=== PATIENT | female | born 1950 | race African-American/Black ===

== ENCOUNTER 2016-11-14 08:42 | Inpatient (IN) | payer OTHER ==
[~2016-11-14] VITALS: Ht 165.1 cm; Wt 78.9 kg
[2016-11-14 09:30] LABS: CLARITY URINE CLEAR (CLEAR); COLOR URINE DARK YELLOW (YELLOW); GLUCOSE URINE NEGATIVE (NEGATIVE); KETONES URINE TRACE (NEGATIVE); LEUKOCYTE ESTERASE URINE NEGATIVE (NEGATIVE); NITRITE URINE NEGATIVE (NEGATIVE); OCCULT BLOOD URINE TRACE (NEGATIVE); PH URINE 5.5 (4.5-8.0); PROTEIN URINE 3+ (NEGATIVE); SPECIFIC GRAVITY URINE 1.027 (1.005-1.030)
[2016-11-14 09:45] LABS: *AMPHETAMINES SCREEN URINE NEGATIVE (NEGATIVE); *BARBITURATES SCREEN URINE NEGATIVE (NEGATIVE); *BENZODIAZEPINES SCREEN URINE NEGATIVE (NEGATIVE); *COCAINE SCREEN URINE NEGATIVE (NEGATIVE); CANNABINOID URINE SCREEN NEGATIVE (NEGATIVE); METHADONE URINE SCREEN NEGATIVE (NEGATIVE); OPIATES URINE SCREEN NEGATIVE (NEGATIVE); PHENCYCLIDINE URINE SCREEN NEGATIVE (NEGATIVE)
[2016-11-14 09:55] LABS: BASOPHILS % 0.9 % (0.0-2.0); HEMATOCRIT. 48.2 % (36.0-48.0); HEMOGLOBIN. 15.2 g/dL (12.0-16.0); LYMPHOCYTES % 21.2 % (20.0-50.0); MEAN CORPUSCULAR HEMOGLOBIN 25.7 pg (28.0-32.0); MEAN CORPUSCULAR VOLUME 81.3 fL (81.0-99.0); MEAN PLATELET VOLUME 11.2 fl (7.4-10.4); MONOCYTES % 6.1 % (2.0-8.0); NEUTROPHILS % 70.8 % (40.0-76.0); PLATELET 195 x1000/uL (130-400); RED BLOOD CELL COUNT 5.93 mill/uL (4.2-5.4); RED CELL DISTRIBUTION WIDTH 14.3 % (11.6-14.6)
[2016-11-14 10:09] LABS: AMMONIA 31 uMol/L (<32)
[2016-11-14 10:13] LABS: CARBON DIOXIDE 24 mEq/L (21-32); CHLORIDE 105 mEq/L (98-107); ETHANOL BLOOD < 10 mg/dL; TROPONIN I < 0.02 ng/mL (0.00-0.04)
[2016-11-14] MEDS ORDERED: PIPERACILLIN/TAZOBACTAM 3.375GM/50ML PREMIX IV ONE (11:30)
[2016-11-14] MEDS ORDERED: PIPERACILLIN/TAZ 3.375G PREMIX 50 ML IV NR (11:30)
[2016-11-14] MEDS ORDERED: SODIUM CHLORIDE 0.9% 1,000 ML IV ONE (12:15)
[2016-11-14] MEDS ORDERED: ACETAMINOPHEN 325MG TABLET PO PRN (12:45)
[2016-11-14] MEDS ORDERED: NA PHOS,M-B/NA PHOS,DI-BA ENEMA 118ML PR PRN (12:45)
[2016-11-14] MEDS ORDERED: GUAIFENESIN 200MG/10ML SUGAR FREE UDC PO PRN (12:45)
[2016-11-14] MEDS ORDERED: DOCUSATE SODIUM 100MG CAPSULE PO PRN (12:45)
[2016-11-14] MEDS ORDERED: IPRATROPIUM/ALBUTEROL 0.5-3(2.5)MG/3ML NEB INH PRN (12:45)
[2016-11-14] MEDS ORDERED: ZOLPIDEM TARTRATE 5MG TABLET PO PRN (12:45)
[2016-11-14] MEDS ORDERED: ONDANSETRON HCL 4MG/2ML VIAL IV PRN (12:45)
[2016-11-14] MEDS ORDERED: KETOROLAC 15MG/ML VIAL IV PRN (12:45)
[2016-11-14] MEDS ORDERED: TRAMADOL 50MG TABLET PO PRN (12:45)
[2016-11-14] MEDS ORDERED: MAGNESIUM/ALUMINUM HYDROXIDE/SIMETHICONE 30ML UDC PO PRN (12:45)
[2016-11-14] MEDS ORDERED: LEVOFLOXACIN 500MG PREMIX 100 ML IV NR (13:00)
[2016-11-14] MEDS ORDERED: ENOXAPARIN 40MG/0.4ML SYR SUBCUT SCH (13:00)
[2016-11-14 13:03] LABS: T4 FREE 1.23 ng/dL (0.76-1.46)
[2016-11-14 13:25] LABS: FOLIC ACID (FOLATE) SERUM 7.2 ng/mL (>5.38)
[2016-11-14 14:37] LABS: CREATINE KINASE 88 IU/L (26-192); CREATINE KINASE MB FRACTION < 0.5 ng/mL (0.5-3.6); TROPONIN I < 0.02 ng/mL (0.00-0.04)
[2016-11-14 20:00] VITALS: BP 159/80
[2016-11-14 21:00] VITALS: BP 157/63
[2016-11-14] MEDS: SUCRALFATE 1 G/10 ML UDC PO SCH (21:00)
[2016-11-14] MEDS: ENOXAPARIN 40MG/0.4ML SYR SUBCUT SCH (21:13)
[2016-11-14] MEDS: FAMOTIDINE 20MG/2ML VIAL IV SCH (21:13)
[2016-11-14 23:11] LABS: CREATINE KINASE 105 IU/L (26-192); CREATINE KINASE MB FRACTION 0.7 ng/mL (0.5-3.6); TROPONIN I < 0.02 ng/mL (0.00-0.04)
[2016-11-15] VITALS: BP 137/62
[2016-11-15 04:00] VITALS: BP 128/71
[2016-11-15] MEDS: SUCRALFATE 1 G/10 ML UDC PO SCH ×4 (06:53→20:28)
[2016-11-15 08:00] VITALS: BP 143/93
[2016-11-15] MEDS: FAMOTIDINE 20MG/2ML VIAL IV SCH ×2 (08:46→20:28)
[2016-11-15] MEDS: ASPIRIN 325MG EC TABLET PO SCH (08:47)
[2016-11-15] MEDS: CLONIDINE 0.1MG TABLET PO PRN ×2 (08:47→16:23)
[2016-11-15] MEDS ORDERED: CEFTRIAXONE 1 G PREMIX 50 ML IV SCH (09:00)
[2016-11-15 12:00] VITALS: BP 162/81
[2016-11-15] MEDS ORDERED: LEVOFLOXACIN 500MG PREMIX 100 ML IV SCH (12:00)
[2016-11-15 16:00] VITALS: BP 165/105
[2016-11-15 20:00] VITALS: BP 151/72
[2016-11-15] MEDS: ENOXAPARIN 40MG/0.4ML SYR SUBCUT SCH (20:29)
[2016-11-16] VITALS: BP 160/88
[2016-11-16 04:00] VITALS: BP 156/97
[2016-11-16] MEDS: SUCRALFATE 1 G/10 ML UDC PO SCH (06:19)
[2016-11-16 07:59] VITALS: BP 199/87
[2016-11-16 08:04] VITALS: BP 173/98
[2016-11-16] MEDS: FAMOTIDINE 20MG/2ML VIAL IV SCH (09:00)
[2016-11-16] MEDS: ASPIRIN 325MG EC TABLET PO SCH (09:00)
[2016-11-16] MEDS: CLONIDINE 0.1MG TABLET PO PRN (10:07)
[2016-11-16] MEDS ORDERED: CEFTRIAXONE 1 G PREMIX 50 ML IV SCH (11:00)
[2016-11-16 12:05] VITALS: BP 132/87
== END 2016-11-16 12:38 | disposition home or self-care (01) | DRG 871 ==
LOC: ER 08:51 → EDBD 12:02 → 8WST 12:02 → SUPCPDRO 12:38 → ENRESERV 17:33 → CANRESERV 17:49
PROVIDERS: ADMIT Internal Medicine; ATTEND Internal Medicine
DX: A41.9 Sepsis, unspecified organism (principal); G92 Toxic encephalopathy; N39.0 Urinary tract infection, site not specified; E78.00 Pure hypercholesterolemia, unspecified; I10 Essential (primary) hypertension; K59.00 Constipation, unspecified; G47.00 Insomnia, unspecified; Z86.73 Personal history of transient ischemic attack (TIA), and cerebral infarction without residual deficits
CPT/HCPCS: 36415; 70450; 70551; 71010; 80053; 80061; 80305; 80307; 80329; 81001; 82140; 82550; 82553; 82607; 82746; 83036; 83540; 83550; 83605; 83880; 84439; 84443; 84484; 85025; 93306; 93970; 96365; 96366; 96368; 96375; 99285; G0482; J0696; J1650; J1956; J2405; J2543; J3490; J7030; J7040

== ENCOUNTER 2018-04-30 09:25 | Emergency (ER) | payer OTHER ==
[~2018-04-30] VITALS: Ht 154.9 cm; Wt 69.0 kg
[2018-04-30 11:06] LABS: BASOPHILS % 1.1 % (0.0-2.0); EOSINOPHILS % 1.2 % (0.0-5.0); HEMOGLOBIN. 14.8 g/dL (12.0-16.0); MEAN CORPUSCULAR HEMOGLOBIN 26.5 pg (28.0-32.0); MEAN CORPUSCULAR VOLUME 83.8 fL (81.0-99.0); MEAN PLATELET VOLUME 11.5 fl (7.4-10.4); MONOCYTES % 8.2 % (2.0-8.0); NEUTROPHILS % 74.5 % (40.0-76.0); PLATELET 142 x1000/uL (130-400); RED BLOOD CELL COUNT 5.61 mill/uL (4.2-5.4)
[2018-04-30 11:13] LABS: CHLORIDE 110 mEq/L (98-107)
[2018-04-30] MEDS ORDERED: METOPROLOL TARTRATE 50MG TABLET PO ONE (13:15)
[2018-04-30 16:45] LABS: CLARITY URINE CLEAR (CLEAR); COLOR URINE YELLOW (YELLOW); KETONES URINE TRACE (NEGATIVE); LEUKOCYTE ESTERASE URINE NEGATIVE (NEGATIVE); NITRITE URINE NEGATIVE (NEGATIVE); OCCULT BLOOD URINE 1+ (NEGATIVE); PH URINE 5.5 (4.5-8.0); PROTEIN URINE 2+ (NEGATIVE); SPECIFIC GRAVITY URINE 1.077 (1.005-1.030); UROBILINOGEN URINE 0.2 E.U./dL (0.2-1.0)
[2018-04-30 18:04] VITALS: BP 148/72
== END 2018-04-30 18:08 | disposition home or self-care (01) ==
LOC: ER 09:41
DX: R19.09 Other intra-abdominal and pelvic swelling, mass and lump (principal); I10 Essential (primary) hypertension; E78.00 Pure hypercholesterolemia, unspecified
CPT/HCPCS: 36415; 71045; 74177; 84484; 93005; 99284